=== PATIENT | female | born 1970 | race Caucasian/White ===

== ENCOUNTER 2018-05-12 10:26 | Outpatient (REF) | payer SELFPAY ==
[2018-05-12 22:23] LABS: TSH (W/Ref FT4) 0.02 uIU/mL (0.358-3.74)
[2018-05-12 22:40] LABS: FREE T4 1.12 ng/dL (0.76-1.46)
== END 2018-05-12 10:46 ==
LOC: NCHCN 10:26
PROVIDERS: PCP Family Medicine; Visit Provider Family Medicine
DX: E05.90 Thyrotoxicosis, unspecified without thyrotoxic crisis or storm (principal)
CPT/HCPCS: 84439; 84443

== ENCOUNTER 2018-08-26 09:09 | Outpatient (REF) | payer MEDICAID, SELFPAY ==
[2018-08-26 22:53] LABS: Anion Gap 7.4 mmol/L (3-11); BUN 16 mg/dL (7-18); CO2 29.6 mmol/L (21.0-32.0); Calcium 9.1 mg/dL (8.5-10.1); Chloride 104 mmol/L (98-107); Glucose 100 mg/dL (70-100); Potassium 4.3 mmol/L (3.5-5.1); Sodium 141 mmol/L (136-145); TSH (W/Ref FT4) 0.92 uIU/mL (0.358-3.74)
== END 2018-08-26 09:29 ==
LOC: NCHCN 09:09
PROVIDERS: PCP Family Medicine; Visit Provider Family Medicine
DX: I10 Essential (primary) hypertension (principal); E05.90 Thyrotoxicosis, unspecified without thyrotoxic crisis or storm; E88.81 Metabolic syndrome and other insulin resistance
CPT/HCPCS: 80048; 84443

== ENCOUNTER 2019-09-22 08:01 | Outpatient (REF) | payer SELFPAY ==
[2019-09-22 21:17] LABS: Calculated LDL 207 mg/dL (<100); Cholesterol 295 mg/dL (<200); HDL Cholesterol 34 mg/dL (40-60); TSH 1.46 uIU/mL (0.36-3.74); Triglyceride 271 mg/dL (<150)
== END 2019-09-22 08:21 ==
LOC: NCHCN 08:01
PROVIDERS: PCP Family Medicine; Visit Provider Family Medicine
DX: E05.90 Thyrotoxicosis, unspecified without thyrotoxic crisis or storm (principal); E78.5 Hyperlipidemia, unspecified
CPT/HCPCS: 80061; 84443

== ENCOUNTER 2019-10-15 13:29 | Outpatient (REF) | payer MEDICAID, SELFPAY ==
[2019-10-15 22:47] LABS: Anion Gap 9.3 mmol/L (3-11); BUN 15 mg/dL (7-18); CO2 28.7 mmol/L (21.0-32.0); CREATININE 0.78 mg/dL (0.55-1.02); Calcium 9.5 mg/dL (8.5-10.1); Chloride 102 mmol/L (98-107); Glucose 138 mg/dL (74-106); Potassium 4.2 mmol/L (3.5-5.1); Sodium 140 mmol/L (136-145)
== END 2019-10-15 13:49 ==
LOC: NCHCN 13:29
PROVIDERS: PCP Family Medicine; Visit Provider Registered Nurse
DX: I10 Essential (primary) hypertension (principal)
CPT/HCPCS: 80048

== ENCOUNTER 2020-07-12 13:59 | Outpatient (REF) | payer MEDICAID, SELFPAY ==
[2020-07-12 14:36] LABS: Calculated LDL 227 mg/dL (<100); Cholesterol 312 mg/dL (<200); HDL Cholesterol 37 mg/dL (40-60); TSH 1.18 uIU/mL (0.36-3.74); Triglyceride 244 mg/dL (<150)
== END 2020-07-12 14:00 | disposition home or self-care (01) ==
LOC: NCHCN 13:59
PROVIDERS: PCP Family Medicine; Visit Provider Family Medicine
DX: E05.90 Thyrotoxicosis, unspecified without thyrotoxic crisis or storm (principal); Z13.220 Encounter for screening for lipoid disorders
CPT/HCPCS: 80061; 84443

== ENCOUNTER 2020-12-27 09:37 | Outpatient (REF) | payer MEDICAID, SELFPAY ==
[2020-12-27 12:59] LABS: Calculated LDL 202 mg/dL (<100); Cholesterol 293 mg/dL (<200); HDL Cholesterol 35 mg/dL (40-60); Triglyceride 284 mg/dL (<150)
== END 2020-12-27 09:38 | disposition home or self-care (01) ==
LOC: NCHCN 09:37
PROVIDERS: PCP Family Medicine; Visit Provider Family Medicine
DX: E78.49 Other hyperlipidemia (principal); E88.81 Metabolic syndrome and other insulin resistance; Z00.00 Encounter for general adult medical examination without abnormal findings
CPT/HCPCS: 80061

== ENCOUNTER 2021-08-08 15:47 | Outpatient (REF) | payer SELFPAY ==
[2021-08-08 15:07] LABS: Hemoglobin A1C 5.8 % (<5.7)
[2021-08-08 15:12] LABS: Anion Gap 9.6 mmol/L (3-11); BUN 16 mg/dL (7-18); CO2 27.4 mmol/L (21.0-32.0); CREATININE 0.8 mg/dL (0.55-1.02); Calcium 9.3 mg/dL (8.5-10.1); Chloride 102 mmol/L (98-107); Glucose 98 mg/dL (74-106); Potassium 4.4 mmol/L (3.5-5.1); Sodium 139 mmol/L (136-145)
[2021-08-10 09:46] LABS: TSH (W/Ref FT4) 2.45 uIU/mL (0.36-3.74)
== END 2021-08-08 15:48 | disposition home or self-care (01) ==
LOC: NCHCN 15:47
PROVIDERS: PCP Family Medicine; Visit Provider Family Medicine
DX: I10 Essential (primary) hypertension (principal); R73.03 Prediabetes
CPT/HCPCS: 80048; 83036; 84443

== ENCOUNTER 2022-09-10 16:07 | Outpatient (REF) | payer SELFPAY ==
[2022-09-10 17:41] LABS: Anion Gap 8.6 mmol/L (3-11); BUN 13 mg/dL (7-18); CO2 28.4 mmol/L (21.0-32.0); CREATININE 0.9 mg/dL (0.55-1.02); Calcium 9.5 mg/dL (8.5-10.1); Calculated LDL 209 mg/dL (<100); Chloride 105 mmol/L (98-107); Cholesterol 285 mg/dL (<200); Estimated GFR 76.44 (mL/min/1.73m2); Glucose 97 mg/dL (74-106); HDL Cholesterol 39 mg/dL (40-60); Potassium 4.8 mmol/L (3.5-5.1); Sodium 142 mmol/L (136-145); TSH 2.16 uIU/mL (0.36-3.74); Triglyceride 189 mg/dL (<150)
== END 2022-09-10 16:08 | disposition home or self-care (01) ==
LOC: NCHCN 16:07
PROVIDERS: PCP Family Medicine; Visit Provider Family Medicine
DX: I10 Essential (primary) hypertension (principal); E78.49 Other hyperlipidemia; R73.03 Prediabetes; E05.90 Thyrotoxicosis, unspecified without thyrotoxic crisis or storm
CPT/HCPCS: 80048; 80061; 83036; 84443

== ENCOUNTER 2023-07-22 11:25 | Outpatient (REF) | payer OTHER, SELFPAY ==
[2023-07-22 16:04] LABS: Anion Gap 4.8 mmol/L (3-11); BUN 21 mg/dL (7-18); CO2 28.2 mmol/L (21.0-32.0); CREATININE 0.9 mg/dL (0.55-1.02); Calcium 9.2 mg/dL (8.5-10.1); Calculated LDL 144 mg/dL (<100); Chloride 105 mmol/L (98-107); Cholesterol 216 mg/dL (<200); Estimated GFR 75.97 (mL/min/1.73m2); Glucose 120 mg/dL (74-106); HDL Cholesterol 42 mg/dL (40-60); Potassium 4.9 mmol/L (3.5-5.1); Sodium 138 mmol/L (136-145); TSH 2.95 uIU/Ml (0.36-3.74); Triglyceride 154 mg/dL (<150)
[2023-07-22 16:05] LABS: Hemoglobin A1C 6.3 % (<5.7)
== END 2023-07-22 11:26 | disposition home or self-care (01) ==
LOC: NCHCN 11:25
PROVIDERS: PCP Family Medicine; Visit Provider Family Medicine
DX: R73.03 Prediabetes (principal); E05.90 Thyrotoxicosis, unspecified without thyrotoxic crisis or storm; E78.5 Hyperlipidemia, unspecified; I10 Essential (primary) hypertension
CPT/HCPCS: 80048; 80061; 83036; 84443

== ENCOUNTER 2024-07-01 08:25 | Outpatient (REF) | payer OTHER, SELFPAY ==
[2024-07-01 15:39] LABS: Hemoglobin A1C 6.2 % (<5.7)
[2024-07-01 15:45] LABS: Anion Gap 5.9 mmol/L (3-11); BUN 15 mg/dL (7-18); CO2 31.1 mmol/L (21.0-32.0); CREATININE 0.8 mg/dL (0.55-1.02); Calcium 9.2 mg/dL (8.5-10.1); Calculated LDL 142 mg/dL (<100); Chloride 103 mmol/L (98-107); Cholesterol 208 mg/dL (<200); Estimated GFR 86.96 (mL/min/1.73m2); Glucose 123 mg/dL (74-106); HDL Cholesterol 40 mg/dL (>or=50); Potassium 4.8 mmol/L (3.5-5.1); Sodium 140 mmol/L (136-145); TSH 1.34 uIU/mL (0.36-3.74); Triglyceride 130 mg/dL (<150)
[2024-07-01 16:41] LABS: FREE T4 1.06 ng/dL (0.76-1.46)
== END 2024-07-01 08:26 | disposition home or self-care (01) ==
LOC: NCHCN 08:25
PROVIDERS: PCP Family Medicine; Visit Provider Family Medicine
DX: I10 Essential (primary) hypertension (principal); E05.90 Thyrotoxicosis, unspecified without thyrotoxic crisis or storm; R73.03 Prediabetes; E78.5 Hyperlipidemia, unspecified
CPT/HCPCS: 80048; 80061; 83036; 84439; 84443

== ENCOUNTER 2024-10-15 17:34 | Outpatient (REF) | payer OTHER, SELFPAY ==
[2024-10-15 16:40] LABS: TSH 1.49 uIU/mL (0.36-3.74)
== END 2024-10-15 17:35 | disposition home or self-care (01) ==
LOC: NCHCN 17:34
PROVIDERS: PCP Family Medicine; Visit Provider Family Medicine
DX: E05.90 Thyrotoxicosis, unspecified without thyrotoxic crisis or storm (principal)
CPT/HCPCS: 84443

== ENCOUNTER 2024-11-17 19:54 | Outpatient (REF) | payer OTHER, SELFPAY ==
--- NOTE | 2024-11-17 18:15 | PAPFT_PTH ---
PATIENT: Deena Mccracken LOC: [facility]#:[id number] AGE/SX: 54/F ROOM: RE11/17/[address]: Stacia Franco : 1970 BED: DIS: 11/17/2024 SPEC #: [id number] RECD: 11/18/24 12:33 STATUS: ANUSHKAChristen REQ #: [id number] KEN: 11/17/24 18:[address]: Stacia Franco DEPT: COUNT INCLUDES THE [facility] Cytology RECD BY: Hillary Pittman Tissues: 1 - CX/ENDOCX FOR PAP SMEARS Procedures: PAP THIN PREP/[facility] Screening HPV DNA PROBE Comments: [id number] (HPV 16 & 18/45)
== END 2024-11-17 19:55 | disposition home or self-care (01) ==
LOC: NCHCN 19:54
PROVIDERS: PCP Family Medicine; Visit Provider Family Medicine
DX: Z12.4 Encounter for screening for malignant neoplasm of cervix (principal)
CPT/HCPCS: 88142; 87624